=== PATIENT | female | born 1990 | race African-American/Black ===

== ENCOUNTER 2019-05-26 13:58 | Emergency (ER) | payer MEDICAID ==
--- NOTE | 2019-05-26 14:38 | ER Document Report ---
ED General - General Chief Complaint: Anxiety Stated Complaint: ANXIETY Time Seen by Provider: 05/26/19 14:14 Primary Care Provider: OWEN ROBLERO [Primary Care Provider] - Follow up as needed Notes: 28-year-old female presents emergency department complaining of a 2-day history of worsening anxiety. Patient states that she feels like her chest is really tight and she is short of breath and feels like there is a lot of pressure there. Patient admits to history of panic attacks and states that this feels quite similar. Patient also notes that she has had body aches, nausea, vomiting and back pain but this is also similar to prior panic attacks. Patient has never been treated for these panic attacks in the past and is never taken medication for these panic attacks in the past. Patient states she thinks they are worse because her mother 5 years ago around this time and she just went through a recent break-up. Patient states she feels completely overwhelmed and does not know what to do. States she cannot handle the stress anymore and she has been thinking about killing herself. Patient states she has not done anything to harm herself yet and also states that she does not think she ever would be because she has children. Of note patient has not been taking her hypothyroid medications in the past several months. - Related Data Allergies/Adverse Reactions: No Known Allergies Allergy (Unverified 05/26/19 17:09) Past Medical History - General Information source: Patient - Social History Smoking Status: Current Every Day Smoker Frequency of alcohol use: Social - Weekends Drug Abuse: Cocaine Family History: Reviewed & Not Pertinent Patient has suicidal ideation: No Patient has homicidal ideation: No Review of Systems - Review of Systems Constitutional: No symptoms reported EENT: No symptoms reported Cardiovascular: See HPI Respiratory: See HPI Gastrointestinal: See HPI Musculoskeletal: See HPI Neurological/Psychological: See HPI -: Yes All other systems reviewed and negative Physical Exam - Vital signs Vitals: Pulse Ox 97 05/26/19 15:00 Interpretation: Tachypneic - While crying - Notes Notes: GENERAL: Awake, calm until asked how she is and then she starts crying, able to calm fairly easily. HEAD: Normocephalic, atraumatic EYES: Pupils equal, round and reactive to light, extraocular movements intact. ENT: Oral mucosa moist, tongue midline. NECK: Full range of motion, supple, trachea midline. LUNGS: Clear to auscultation bilaterally, no wheezes, rales or rhonchi, no respiratory distress. HEART: Regular rate and rhythm, no murmurs, gallops, rubs. ABDOMEN: Soft, nontender, nondistended, bowel sounds present in all 4 quadrants. EXTREMITIES: Moves all 4 extremities spontaneously, no edema, radial and d orsalis pedis pulses 2/4 bilaterally. No cyanosis. NEUROLOGICAL: Alert and oriented x3, normal speech, no facial droop, biceps and patellar DTRs 2+ bilaterally. PSYCH: Tearful, mildly anxious. Somewhat labile. SKIN: Warm, Dry, normal turgor, no rashes or lesions noted. Course - Re-evaluation Re-evalutation: 05/26/19 19:32 CBC unremarkable, CMP grossly unremarkable, TSH slightly low but free T3 and T4 are normal, no need to restart thyroid medications right now in the ER, hCG negative, urine drug screen shows cocaine, based on positive cocaine behavioral health recommend Zyprexa 2.5 mg by mouth twice a day, acetaminophen is undetectable as is alcohol, she does have 2.2 of salicylates in her system, we will recheck this in 3 to 4 hours to make sure it is not increasing. She has no signs of salicylate toxicity at this time. 05/26/19 19:32 Chest x-ray shows no acute process. 05/26/19 20:56 Patient is complaining of chest pain at this time, troponin is negative, repeat troponin has been drawn, repeat EKG does not show any change. Patient's chest pain is back and feeling like a tightness in her chest and her back, states that it started after "I got off the phone with that idiot." She was referring to the boyfriend with whom she just broke up. I suspect that this chest pain is all related to anxiety rather than acute coronary syndrome however we are awaiting the second troponin to be certain. Patient will also be given Tylenol for this. 05/26/19 20:59 Repeat troponin is negative, salicylates are downtrending, patient was given aspirin in the ambulance. Patient is medically cleared at this point. - Vital Signs Vital signs: Temp Pulse Resp BP Pulse Ox 98.7 F 82 20 141/99 H 97 05/26/19 20:14 05/26/19 16:07 05/26/19 20:14 05/26/19 20:14 05/26/19 16:07 - Laboratory Result Diagrams: 05/26/19 15:30 05/26/19 15:30 Laboratory results interpreted by me: 05/26/19 05/26/19 05/26/19 15:30 15:30 15:30 RDW 14.2 H Total Protein 8.4 H TSH 0.31 L Salicylates Acetaminophen < 10 L 05/26/19 20:04 RDW Total Protein TSH Salicylates 1.3 L Acetaminophen - EKG Interpretation by Me Additional EKG results interpreted by me: 05/26/19 20:57 Initial EKG at 1541 shows sinus rhythm at a rate of 85, normal axis, normal intervals, no ST segment elevations or depressions, there are T wave inversions in lead III and V3 per my interpretation. Repeat EKG at 2009 on 05/26/2019 shows sinus rhythm at a rate of 82, normal axis, normal intervals, no ST segment elevations or depressions, unchanged T wave inversions in lead III and V3 per my interpretation. Discharge - Discharge Clinical Impression: Complicated grief, PTSD (post-traumatic stress disorder), Chest pain with low risk for cardiac etiology, Cocaine abuse, Marijuana abuse Condition: Stable Disposition: PSYCH HOSP/UNIT Referrals: LOCALMD,NO [Primary Care Provider] - Follow up as needed
--- NOTE | 2019-05-26 15:09 | RADIOLOGY REPORT (SQ) ---
EXAM DESCRIPTION: CHEST SINGLE VIEW COMPLETED DATE/TIME: 05/26/2019 2:45 pm REASON FOR STUDY: chest pain COMPARISON: None. EXAM PARAMETERS: NUMBER OF VIEWS: One view. TECHNIQUE: Single frontal radiographic view of the chest acquired. RADIATION DOSE: NA LIMITATIONS: Portable technique, large patient FINDINGS: LUNGS AND PLEURA: No opacities, masses or pneumothorax. No pleural effusion. MEDIASTINUM AND HILAR STRUCTURES: No masses. Contour normal. HEART AND VASCULAR STRUCTURES: Heart normal in size. Normal vasculature. BONES: No acute findings. HARDWARE: None in the chest. OTHER: No other significant finding. IMPRESSION: NO ACUTE RADIOGRAPHIC FINDING IN THE CHEST. TECHNICAL DOCUMENTATION: JOB ID: [id number] [employer]- All Rights Reserved Reading location - IP/workstation name: [id number]
[2019-05-26 15:41] LABS: ABSOLUTE EOSINOPHILS # (AUTO) 0.1 10^3/uL (0.0-0.6); ABSOLUTE LYMPHOCYTES (AUTO) 1.4 10^3/uL (0.5-4.7); ABSOLUTE MONOCYTES (AUTO) 0.5 10^3/uL (0.1-1.4); ABSOLUTE NEUT (AUTO) 2.3 10^3/uL (1.7-8.2); BASOPHILS % (AUTO) 0.8 % (0-2); EOSINOPHILS % (AUTO) 1.5 % (0-6); HEMATOCRIT 40.7 % (36.0-47.0); HEMOGLOBIN 13.7 g/dL (12.0-15.5); LYMPHOCYTES % (AUTO) 32.9 % (13-45); MEAN CORPUSCULAR HEMOGLOBIN 28.7 pg (27.0-33.4); MEAN CORPUSCULAR HGB CONC 33.7 g/dL (32.0-36.0); MEAN CORPUSCULAR VOLUME 85 fl (80-97); MONOCYTES % (AUTO) 11.4 % (3-13); PLATELET COUNT 312 10^3/uL (150-450); RED BLOOD COUNT 4.78 10^6/uL (3.72-5.28); RED CELL DISTRIBUTION WIDTH 14.2 % (11.5-14.0); SEGMENTED NEUTROPHILS % (AUTO) 53.4 % (42-78); TOTAL CELLS COUNTED % (AUTO) 100 %; WHITE BLOOD COUNT 4.3 10^3/uL (4.0-10.5)
[2019-05-26 16:10] LABS: ALBUMIN 4.7 g/dL (3.5-5.0); ALKALINE PHOSPHATASE 65 U/L (38-126); ANION GAP 12 (5-19); ASPARTATE AMINO TRANSFERASE 20 U/L (14-36); BILIRUBIN,DIRECT 0.2 mg/dL (0.0-0.4); BILIRUBIN,TOTAL 0.5 mg/dL (0.2-1.3); BLOOD UREA NITROGEN 11 mg/dL (7-20); CALCIUM 9.7 mg/dL (8.4-10.2); CARBON DIOXIDE 27 mmol/L (22-30); CHLORIDE 103 mmol/L (98-107); CREATINE KINASE 92 U/L (30-135); GLUCOSE 95 mg/dL (75-110); POTASSIUM 4.2 mmol/L (3.6-5.0); SALICYLATE 2.2 mg/dL (2.0-20.0); TOTAL PROTEIN 8.4 g/dL (6.3-8.2)
[2019-05-26 16:14] LABS: ACETAMINOPHEN < 10 ug/mL (10-30); ALCOHOL < 10 mg/dL (NONE DETECTED)
[2019-05-26 16:21] LABS: CREATINE KINASE MB 0.47 ng/mL (<4.55)
[2019-05-26 16:23] LABS: TROPONIN I < 0.012 ng/mL
[2019-05-26 16:27] LABS: FREE T3 3.32 pg/mL (2.77-5.27); FREE T4 (FREE THYROXINE) 1.28 ng/dL (0.78-2.19)
[2019-05-26 16:41] LABS: THYROID STIMULATING HORMONE 0.31 uIU/mL (0.47-4.68)
[2019-05-26 17:30] LABS: URINE AMPHETAMINES SCREEN NEGATIVE; URINE BARBITURATES SCREEN NEGATIVE; URINE BENZODIAZEPINES SCREEN NEGATIVE; URINE MARIJUANA (THC) SCREEN NEGATIVE; URINE METHADONE SCREEN NEGATIVE; URINE PHENCYCLIDINE SCREEN NEGATIVE
[2019-05-26 17:36] LABS: URINE COCAINE SCREEN UNCONFIRMED POSITIVE
[2019-05-26] MEDS: OLANZAPINE 2.5 MG TABLET PO SCH (20:12)
[2019-05-26] MEDS ORDERED: ACETAMINOPHEN 325 MG TABLET PO ONE (20:55)
--- NOTE | 2019-05-26 23:31 | EKG REPORT ---
SEVERITY:- BORDERLINE ECG - SINUS RHYTHM BORDERLINE T WAVE ABNORMALITIES : Confirmed by: Holland Salvador 26-May-2019 23:31:04
--- NOTE | 2019-05-26 23:32 | EKG REPORT ---
SEVERITY:- BORDERLINE ECG - SINUS RHYTHM BORDERLINE T ABNORMALITIES, INFERIOR LEADS : Confirmed by: Holland Salvador 26-May-2019 23:31:21
[2019-05-27] MEDS: OLANZAPINE 2.5 MG TABLET PO SCH (10:49)
[2019-05-27 12:17] VITALS: BP 129/71
--- NOTE | 2019-05-27 14:46 | PSYCHOLOGICAL NOTE ---
Psych Note - Psych Note Date seen by psych provider: 05/27/19 Time seen by psych provider: 06:55 Psych Note: Reason for consult: SI-Anxiety This 28-year-old female patient brought to emergency room via EMS. Patient complains of anxiety that has worsened over 2 days. Patient is experiencing emotional distress related to the 5 year anniversary of her mothers and a recent breakup with her boyfriend. Patient described cocaine use as infrequent. Patient stated she was just overwhelmed. Patient reports benefit of medication. Patient states her only complain is drowsiness. Patient denies suicidal and homicidal ideations. Patient identified a strong support system in her brother and sister in law. Provided psychoeducation regarding the biological and psychological effects of cocaine use. Discussed the benefit of medication management and outpatient therapy. Patient is agreeable to outpatient treatment. Patient denies a desire to . Patient is alert and oriented to person, place, time and circumstance. Mood normal with congruent affect. Patient denies suicidal and homicidal ideation. Delusions are absent and behavior is congruent with an intact reality based presentation (i.e. organized and linear thought processes). Patient denies auditory and visual hallucinations. There is no observed behavior that suggests patient is responding to internal stimuli. Eye contact is good. Conversational speech is within normal rate, tone, and prosody. Intellectual ability appears to be within average range. Attention and concentration are good. Insight, judgment, and impulse control are fair. DSM Diagnosis: Per report, Anxiety Medication recommendations per [facility] contracted psychiatrist Dr. Colleen NORRIS is as follows: Zyprexa 2.5MG, twice per day Impression/Plan: Patient is cleared from acute psychiatric services. Patient does not meet IVC criteria per [place] GS 122C. It is recommended that IVC be rescinded. Medication recommendations have been provided. Patient denies suicidal and homicidal ideations. There is no observed behavior that suggests patient is responding to internal stimuli. Patient is agreeable to outpatient treatment to address mental health concerns. Patient has a strong support system in her family. Patient is able to be thoughtfully and purposefully engaged in her own plan of care. Dr. Miranda was consulted on the care and management of this patient; attending physician is in agreement with recommendations and disposition.
--- NOTE | 2019-05-27 15:05 | ER Document Report ---
Doctor's Note Notes: 05/27/19 14:45 patient evaluated. Nontoxic, well appearing. Patient without any complaints. Patient to be discharged per psychiatric recommendations with prescription for Zyprexa 2.5 twice daily for 2 weeks and outpatient follow-up. Patient is agreeable to plan of care.
--- NOTE | 2019-05-29 12:34 | PSYCHOLOGICAL NOTE ---
Psych Note - Psych Note Date seen by psych provider: 05/26/19 Time seen by psych provider: 14:45 Psych Note: Reason for Consult: Anxiety patient arrives to ED with c/o anxiety and chest pain that has been present since Monday. Pt went through recent breakup with significant other, following the separation chest pain started. Upon EMS arrival the patient was sitting on the couch in obvious emotional distress and crying. Patient reports that this month is a 5-year anniversary of her mother's and has been having very difficult time without her. She reports that she misses her all the time, is always depressed and still has nightmares of the moment she took that her last breath. She continued to report that if she is not so depressed she cannot function she is irritable and same thing she does not mean. She reports that because of this behavior her significant other of 3 years packed his things on Monday and left her. She reports she is tired of feeling like this in dealing with her emotions. She reports passive suicidal ideation i.e. no plans means or intent however does admit to previous suicidal ideation with plans. She denies ever attempting to harm herself stating "I am just tired I would never do anything to hurt myself but I am just tired." She denies any family history of mental health. Patient denies any outpatient mental health services or medications. she reports onset of symptoms was after her mother and denies any mood lability prior to. Patient is alert and orientated to person, place, time and circumstance. Mood is dysphoric with tearful affect. Patient endorses passive suicidal ideation i.e. no plans means or intent. Patient denies homicidal ideation. Delusions are absent behaviors congruent with an intact reality based presentation i.e. organized linear thought process. Eye contact was poor. Conversational speech was difficult to understand at times due to patient's crying. Intellectual abilities appear to be within the average range. Attention and concentration is fair. Insight, judgment, impulse control is fair. Other specified trauma; persistent complex bereavement disorder Medication recommendations per [facility] contracted psychiatrist Dr. Colleen NORRIS are as follows Zyprexa 2.5mg twice daily Impression\\plan: Patient is recommended for IVC petition for overnight mental health observation. Patient is currently in emotional distress and reporting passive suicidal ideation. Medication recommendations have been provided. Patient be reevaluated. Dr. Miranda was consulted to care management of this patient; attending physicians in agreement with recommendations and disposition
== END 2019-05-27 15:18 | disposition home or self-care (01) ==
LOC: ER 13:58
DX: F43.21 Adjustment disorder with depressed mood (principal); F43.10 Post-traumatic stress disorder, unspecified; F14.10 Cocaine abuse, uncomplicated; F12.10 Cannabis abuse, uncomplicated; R07.9 Chest pain, unspecified; R06.02 Shortness of breath; R11.2 Nausea with vomiting, unspecified; M54.9 Dorsalgia, unspecified; Z63.4 Disappearance and death of family member; F17.200 Nicotine dependence, unspecified, uncomplicated; R79.89 Other specified abnormal findings of blood chemistry
CPT/HCPCS: 93005; 99284; 36415; 84439; 82553; 80307 ×4; 82550; 83690; 84443; 85025; 81025; 80053; 84484; 84481; 71045; 93010; J3490 ×3